=== PATIENT | male | born 1975 | race Caucasian/White ===

== ENCOUNTER 2017-04-25 04:35 | Emergency (ER) | payer MEDICAID ==
[~2017-04-25] VITALS: Ht 177.8 cm; Wt 76.1 kg
[~2017-04-25 04:35] MED LIST: CEPH500C3 PO; Z.0.NO CURRENT MEDS
[2017-04-25 04:44] VITALS: BP 121/86; PULSE 114; RESP 14; TEMP 98.6; O2SAT 94
[2017-04-25] MEDS ORDERED: LIDOCAINE 1%/EPINEPHrine 1:100,000 SOLN 30 ML VIAL ONE (05:00)
[2017-04-25] MEDS ORDERED: LIDOCAINE 1%/EPINEPHrine 1:100,000 SOLN 20 ML VIAL INFIL ONE (05:00)
--- NOTE | 2017-04-25 05:27 | PD ---
HPI Chief Complaint: Laceration/Skin Injury Time Seen by Provider: 04:53 Travel History International Travel<30 days: No Contact w/Intl Traveler<30days: No Traveled to known affect area: No History of Present Illness HPI The patient is a 42-year-old male that at approximately 0400 lacerated the right upper eye lid with a glass candle. There was no loss of consciousness and he has no other injury. The patient does not want to talk further about how this happened. His last tetanus shot was between 5 and 10 years and he does not want another tetanus shot. The patient states there is no glass in the wound to the best of his knowledge. PFSH Past Medical History Respiratory: Yes (CURRENTLY HAS A COLD) Tetanus Vaccination: < 5 Years Influenza Vaccination: No Past Surgical History Abdominal Surgery: Yes (3 [facility]IA REPAIRS) Tonsillectomy: Yes Social History Alcohol Use: Yes (PT STATES "OCCASIONAL") Tobacco Use: Yes (PT STATES "5 CIGS A DAY") Substance Use: No Allergies-Medications (Allergen,Severity, Reaction): Coded Allergies: No Known Allergies (Verified , 04/25/17) Reported Meds & Prescriptions Reported Meds & Active Scripts Active No Active Prescriptions or Reported Medications Review of Systems Except as stated in HPI: all other systems reviewed are Neg Physical Exam Narrative GENERAL: Well-nourished, well-developed patient in slight apparent distress with his right facial laceration. His heart rate is 114 but the rest of his vital signs are normal. SKIN: Focused skin assessment warm/dry. There is a 3 cm laceration on the skin above the right eye. This does not involve the actual upper eyelid. HEAD: Normocephalic. EYES: No scleral icterus. No injection or drainage. NECK: Supple, trachea midline. No JVD or lymphadenopathy. CARDIOVASCULAR: Regular rate and rhythm without murmurs, gallops, or rubs. RESPIRATORY: Breath sounds equal bilaterally. No accessory muscle use. GASTROINTESTINAL: Abdomen soft, non-tender, nondistended. MUSCULOSKELETAL: No cyanosis, or edema. BACK: Nontender without obvious deformity. No CVA tenderness. Data Data Last Documented VS Vital Signs Date Time Temp Pulse Resp B/P Pulse Ox O2 Delivery O2 Flow Rate FiO2 04/25/17 04:44 98.6 114 14 121/86 94 Room Air Orders Wound Care (04/25/17 04:53) Lidocai-Epi 1%-1:100,000 Inj (Xylocaine- (04/25/17 05:00) Lidocai-Epi 1%-1:100,000 Inj (Xylocaine- (04/25/17 05:00) MDM Medical Decision Making Medical Screen Exam Complete: Yes Emergency Medical Condition: Yes Medical Record Reviewed: Yes Differential Diagnosis Laceration face requiring deep sutures, laceration of face not requiring deep sutures, foreign body in wound Narrative Course The patient has a laceration of the face, just temporal to the eyelid. It does not involve the upper eyelid. It was 3 cm long and 9 sutures were used. No deep stitches were required. Impression: Facial laceration Plan: Patient will return as needed if there any problems with a laceration. He should keep it clean and dry and always keep the line of antibacterial ointment on the suture line. He should return in 5 days, this , for suture removal. Procedures Procedure Narrative Under sterile technique, the wound was infiltrated with lidocaine with epinephrine and the skin painted with Betadine. The wound was copiously irrigated with saline. 5-0 nylon was used, 9 stitches on the skin were used. No deep stitches were required. The patient tolerated the procedure well. Diagnosis Primary Impression: Facial laceration Additional Instructions: As we discussed, return on for suture removal. If you have any problems, return immediately. Med/Other Pt SpecificInfo: No Change to Meds Scripts No Active Prescriptions or Reported Meds Disposition: DISCHARGE HOME Condition: Stable Rl Woodruff MD Apr 25, 2017 05:27
== END 2017-04-25 05:48 | disposition home or self-care (01) ==
LOC: PHED 04:35
DX: S01.111A Laceration without foreign body of right eyelid and periocular area, initial encounter (principal); Z72.0 Tobacco use; W45.8XXA Other foreign body or object entering through skin, initial encounter; W22.8XXA Striking against or struck by other objects, initial encounter; Y93.9 Activity, unspecified; Y92.9 Unspecified place or not applicable; Y99.9 Unspecified external cause status
CPT/HCPCS: 12013